=== PATIENT | male | born 1975 | race Caucasian/White ===

== ENCOUNTER 2017-03-09 07:28 | Day surgery (SDC) | payer OTHER ==
[~2017-03-09] VITALS: Ht 203.2 cm; Wt 99.8 kg
[~2017-03-09 07:28] MED LIST: LORADAMED10 MG PO; MULTIPLE VITAM1 EACH PO; PRAVASTATIN SOD40 MG PO
[2017-03-09 08:48] VITALS: BP 120/72
[2017-03-09] MEDS ORDERED: NORCO 5/3251 TABLET PO (11:34)
[2017-03-09] MEDS ORDERED: MOTRIN600 MG PO (11:34)
[2017-03-09 12:25] VITALS: BP 124/56
[2017-03-09 13:25] VITALS: BP 125/59
== END 2017-03-09 13:00 | disposition home or self-care (01) ==
LOC: SDC 07:28
PROC: 0YU50JZ Supplement Right Inguinal Region with Synthetic Substitute, Open Approach (ICD-10-PCS; principal; 2017-03-09)
DX: K40.90 Unilateral inguinal hernia, without obstruction or gangrene, not specified as recurrent (principal); E78.4 Other hyperlipidemia; E05.90 Thyrotoxicosis, unspecified without thyrotoxic crisis or storm
CPT/HCPCS: C1781; J0690; J1885; J2250; J3010; S0020